=== PATIENT | female | born 1970 | race Caucasian/White ===

== ENCOUNTER → 2017-03-10 | Outpatient (CLI) | payer OTHER ==
[2016-02-09 17:40] VITALS: BP 136/86
--- NOTE | 2017-03-11 08:33 | CT ---
HISTORY: Left flank pain, hematuria Study: CT abdomen pelvis without contrast Comparison: None Technique: Axial non contrast images with coronal and sagittal reformats. Dose reduction procedures were used with MA/kv adjusted for body size. Findings: The lung bases are clear. The liver is normal in size and configuration but decreased in attenuation suggestive of mild fatty infiltration. Multiple gallstones are present within the gallbladder. No f indings suggestive of cholecystitis are present. The spleen, adrenal glands, and pancreas are within normal limits. The right kidney is unobstructed. There is a 4 millimeter nonobstructing right lower pole renal calculus present. No ureteral calculi are identified. There is minimal fullness of the l eft upper collecting system and left ureter proximal to a 1 millimeter calculus located in the dista l ureter distal to the inferior aspect of the left SI joint. The appendix is normal. No intraperiton eal or retroperitoneal lymphadenopathy is identified. There are no findings suggestive of diverticul itis or colitis. Examination of the pelvis demonstrated no evidence for pelvic masses, pelvic fluid, or pelvic lymphadenopathy. No significant skeletal abnormality is identified. IMPRESSION: 1 millimeter minimally obstructing distal left ureteral calculus Nonobstructing right lower pole renal calculus Cholelithiasis without evidence for cholecystitis. Mild fatty infiltration of the liver Reported By:
== END ==
LOC: RAD 14:13
PROVIDERS: ATTEND Internal Medicine
DX: R31.0 Gross hematuria (principal)
CPT/HCPCS: 74176